=== PATIENT | female | born 1995 | race Caucasian/White ===

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

== ENCOUNTER 2017-01-03 16:24 | Emergency (ER) | payer OTHER | END 2017-01-03 20:10 | disposition home or self-care (01) | LOC: ER1 16:24 | DX: S46.911A Strain of unspecified muscle, fascia and tendon at shoulder and upper arm level, right arm, initial encounter (principal); S39.012A Strain of muscle, fascia and tendon of lower back, initial encounter; V43.52XA Car driver injured in collision with other type car in traffic accident, initial encounter | CPT/HCPCS: 72100; 73030; 84703; 99284 ==

== ENCOUNTER 2022-02-20 12:26 | Emergency (ER) | payer OTHER ==
[~2022-02-20 12:26] MED LIST: KEFLEX CAP 500500 MG PO; MUCINEX DM ER1 EAC1 PO; ROBITUSSIN AC480 ML PO; ZITHROMAX500 MG PO; ZOFRAN ODT 4 MG4 MG PO
[2022-02-20 13:39] LABS: HEMOGLOBIN 12.9 gm/dl (12.3-15.3); RED BLOOD COUNT 4.52 M/UL (4.00-5.10); WHITE BLOOD COUNT 6.1 K/UL (4.5-11.0)
[2022-02-20 14:40] LABS: BUN/CREATININE RATIO 14 (0-10)
[2022-02-20] MEDS ORDERED: PROVERA10 MG PO (15:06)
== END 2022-02-20 15:38 | disposition home or self-care (01) ==
LOC: ER1 12:26
PROVIDERS: Nurse Practitioner
DX: N93.9 Abnormal uterine and vaginal bleeding, unspecified (principal)
CPT/HCPCS: 80053; 81001; 84703; 85025; 87086; 99284